=== PATIENT | male | born 1950 | race Caucasian/White ===

== ENCOUNTER → 2024-04-21 07:27 | Outpatient (REF) | payer OTHER, SELFPAY | LOC: EMG 07:27 | PROVIDERS: ATTENDING PHYSICIAN Psychiatry & Neurology Sleep Medicine; FAMILY PHYSICIAN Nurse Practitioner | DX: G62.9 Polyneuropathy, unspecified (principal); R20.0 Anesthesia of skin | CPT/HCPCS: 95886; 95912 ==

== ENCOUNTER 2025-04-15 14:35 | Emergency (ER) | payer MEDICARE, OTHER, SELFPAY ==
[2025-04-15 14:37] VITALS: BP 141/94
[2025-04-15 14:49] VITALS: BP 138/100
[2025-04-15 15:00] VITALS: BP 142/75
--- NOTE | 2025-04-15 15:11 | ED.CVA ---
History of Present Illness
General
Chief Complaint: CVA/TIA Symptoms
Source: patient and family
Time Seen by Provider: 04/15/25 14:50
Onset of Stroke Symptoms
Onset of symptoms known: Yes
Date of onset of symptoms: 04/15/25
Time of onset of symptoms: 13:45
History of Present Illness
History of Present Illness:
74-year-old male with past medical history of CHF, hypertension and hyperlipidemia presenting to the emergency department with son who reports that around 1:45 PM the patient started to notice 'an odd sensation' on the left side of his face, son
came to the house and noticed a left-sided facial droop with mild dysarthria prompting him to take the patient to the hospital. Since arriving to the hospital the dysarthria has fully resolved but the patient still has the mild facial droop.
Patient states that for the last 6 to 8 months he has been dealing with daily chronic of unspecified etiology usually a 4 out of 10 but tolerable, today seemed a little bit worse about a 5 out of 10 which she noticed around 9 AM but this headache
resolved after going on a 7 mile walk. Patient also notes that he has been dealing with chronic throat discomfort since November which she is currently scheduled to see a trade union official for later this week. Patient denies any fevers or infectious
symptoms, visual disturbances, focal weakness or numbness, chest pain or shortness of breath, nausea, vomiting or any other concerns. Denies any history of similar. Family history was negative for any acute neurological complications. Social
history was also noncontributory.
Past History
Past History
ED Past Medical History: CHF, HTN and Hypercholesterolemia
ED Past Surgical History: Orthopedic
Social History
Tobacco: Non-smoker
Alcohol: None
Drug: None
Personal:
Living: alone
Review of Systems
Review of Systems
All Other Systems: ROS reviewed and negative except as documented in HPI and ROS
Phy Exam
Physical Exam
Physical Exam:
GENERAL: Alert , in no apparent distress
HEAD: Normocephalic atraumatic
EYE: pupils equal and reactive, 3 mm, PERRL, EOMI
NECK: Supple
ENT: o/p clr, mmm.
CARDIAC: Regular rate and rhythm, no murmur .
LUNGS: Clear breath sounds bilaterally, no acute respiratory distress, no wheezes/rales/rhonchi
ABDOMEN: Soft, without focal tenderness, no r/g, no cvat
NEUROLOGICAL: Alert and oriented x 3, mild facial droop to left noted. no dysarthria/aphasia, no drift, no ataxia
SKIN: Warm and dry, skin intact.
MUSCULOSKELETAL: No edema, well perfused.
PSYCH: Normal and appropriate interaction.
Scores
NIH Stroke Score
Level of Consciousness: 0 - Alert
LOC Questions: 0-Answers both correctly
LOC Commands: 0-Performs both correctly
Best Horizontal Gaze: 0-Normal
Visual Germain: 0=Normal, no visual loss
Facial Palsy: 1=Minor paralysis
Motor - Right Arm: 0=No drift 10 seconds
Motor - Left Arm: 0=No drift 10 seconds
Motor - Right Le-No drift 5 seconds
Motor - Left Le-No drift 5 seconds
Limb Ataxia: 0-Absent
Sensation: 0-Normal
Best Language: 0-No aphasia
Dysarthria: 0-Normal
Extinction and Inattention: 0-No abnormality
NIH Total Score:: 1
Thrombolytic Contraindication
Inclusion and Exclusion criteria reviewed: Yes
Reasons for NON-Tx with Thrombolytics ABSOLUTE Exclusions: Greater than 4.5 hrs from onset of sxs
Heart Failure Risk
Heart Failure Risk Score: Not Applicable
Heart Score for Chest Pain Patients
STEMI patient?: Not applicable
Withdrawal Assessment of Alcohol
Withdrawal Assessment Completed?: Not applicable
Course
Orders/Labs/Results
Orders:
Orders
04/15/25 15:00
CMP [Comprehensive Metabolic Panel] Urgent
Complete Blood Count/With Diff Urgent
04/15/25 15:02
CT HEAD STROKE ALERT W/o Cont Urgent
Comment:
Reason For Exam: left sided facial droop
CT HEAD/NECK ANG STROKE ALERT Urgent
Comment:
Reason For Exam: left sided facial droop
04/15/25 15:04
Electrocardiogram (*1) Urgent
Reason for Study: TIA/Stroke
EKG- Treatment ONCE
04/15/25 15:05
Type+Screen Urgent
PTT Urgent
Prothrombin Time Urgent
04/15/25 15:06
Troponin I Urgent
04/15/25 15:19
Lyme Progressive Urgent
04/15/25 15:54
ABO2 Urgent
BBK Wristband Number:
Associate notified that ABO2 has been ordered: [id number]
Date: 04/15/25
Time: 15:54
Seismic Engineer ID: [id number]
04/15/25 16:10
Aspirin 325 mg PO NOW STA
Atorvastatin [Lipitor] 40 mg PO NOW STA
Clopidogrel Bisulfate [Plavix] 300 mg PO NOW STA
Abnormal Lab Results
04/15/25
15:00
RBC 4.25 L 10^6/uL
(4.70-6.10)
MCH 32.2 H pg
(27.0-31.0)
Absolute Lymphs (auto) 1.0 L 10^3/uL
(1.2-3.4)
Absolute Monos (auto) 0.7 H 10^3/uL
(0.1-0.6)
Lymphocytes % 16.5 L %
(20.5-51.1)
Monocytes % 11.6 H %
(1.7-9.3)
Chloride 111 H mmol/L
(98-107)
Creatinine 0.6 L mg/dL
(0.7-1.3)
Glucose 143 H mg/dl
(70-99)
04/15/25 15:00
04/15/25 15:00
Vital Signs
Initial and Last Documented VS:
Initial Vital Signs
Temp Pulse Resp BP Pulse Ox
98.7 F 96 15 141/94 98
04/15/25 14:37 04/15/25 14:37 04/15/25 14:37 04/15/25 14:37 04/15/25 14:37
Last Documented Vital Signs
Temp Pulse Resp BP Pulse Ox
98.7 F 73 21 156/83 98
04/15/25 14:37 04/15/25 16:15 04/15/25 16:15 04/15/25 16:00 04/15/25 16:15
MDM/Problems Addressed
Differential Diagnosis Includes:
- TIA
- CVA
- Aneurysm
- Hypertensive urgency/emergency
- Ornelas's palsy
- Atypical migraine/complex migraine
- Intracranial bleeding
- Malignancy
MDM/Problems Addressed:
74-year-old male presenting to the ER for evaluation of a left-sided facial droop that reportedly began around 1:45 PM this was accompanied with mild dysarthria which is now reportedly resolved. NIH score of 1. Given his increased headache today
at 9 AM, this could be considered time of onset of symptoms even though the symptoms initially dissipated, new onset of symptoms around 1:45 PM. Given the patient's low NIH score and rapidly improving symptoms patient will not be a TNK candidate.
We still did call a stroke alert, neurology to the bedside. Disposition pending.
*Radiology
Radiology exam reviewed: radiology read reviewed
*Pulse Oximetry
SaO2: 98
Oxygen Mode of Delivery: Room air
Patient hypoxic: no
*Wrapper Selector Interpretation
Rate: normal
Heart Rate: 80
Rhythm: sinus
*Critical Care Note
Total Time (30-74mins, 75-104mins- exclusive of procedures): 30
comment:
Critical care statement: A total of 30 minutes of critical care time was provided for this patient. This includes management of unstable vital signs, evaluation of the patient at bedside, reviewing the patient's pertinent medical records, discussion
with consultants, review of old EKGs and review of pertinent medical records. This time with separate from time utilized to perform the aforementioned documented procedures
Patient Management
Discussion with other providers: Chainman
Escalation/DeEscalation of care consider admission/obs:
Patient seen by neurologist who does suspect patient likely had TIA versus CVA. Patient does not wish to be admitted. Will treat here with a loading dose of aspirin and Plavix. Will send patient home with 3-week supply of dual action platelet
therapy as well as a month supply of Lipitor. Patient has a follow-up already arranged with his primary care provider for week. I also notified the cardiology service desk lead so patient can be scheduled for a Holter monitor and echocardiogram and was
able to schedule him an appointment on May 15 at 9:[address] Belcher. Patient and son are happy with this plan and are agreeable to return precautions.
ED Attending Note
-
Portions of this chart may have been created with voice recognition software.� Occasional wrong word or��sound alike� substitutions may have occurred due to the inherent limitations of voice recognition software.
Discharge Plan
Departure
Patient Disposition: Home (Routine Discharge)
Date of Disposition: 04/15/25
Time of Disposition: 16:07
Patient with high blood pressure during this ER visit?: Yes
Discharge Problem:
Brain TIA
Instructions: Transient Ischemic Attack (DC)
Prescriptions:
New
aspirin 81 mg tablet
81 mg PO DAILY Qty: 30 0RF
atorvastatin [Lipitor] 40 mg tablet
40 mg PO DAILY Qty: 30 0RF
clopidogrel [Plavix] 75 mg tablet
75 mg PO DAILY 21 Days Qty: 21 0RF
No Action
fluticasone propion-salmeterol [Advair Diskus] 250-50 mcg/dose Blister With Device
1 inh INHALATION BID
atorvastatin 20 mg Tablet
20 mg PO QPM
montelukast 10 mg Tablet
10 mg PO DAILY
Spiriva Respimat 1.25 mcg/actuation Mist
2 puff INHALATION DAILY
Referrals:
Vic Beyer MD [Active, Cardiology]
Referral Note: Please call for appointment
UNKNOWN - PT DOES,NOT KNOW [Unknown Provider]
Interventions
Interventions:
*Risk Screen - Suicide Last Done: 04/15/25 14:37
*General Assessment Last Done: 04/15/25 14:37
*Neglect/Abuse Screening Last Done: 04/15/25 14:37
*ED- Fall Risk Assessment Last Done: 04/15/25 14:48
*ED COVID-19 Vaccine History Last Done: 04/15/25 14:48
*Nursing Disposition Last Done: 04/15/25 16:38
ED- Pulmonary Assessment Last Done: 04/15/25 14:48
ED- Neurological Assessment Last Done: 04/15/25 14:48
ED- Cardiac Assessment Last Done: 04/15/25 14:48
ED Swallowing Screen Last Done: 04/15/25 16:00
Discharge Date and Time
Discharge Date/Time: 04/15/25 16:39
Print Language: SLOVAK
[2025-04-15 15:12] LABS: Hematocrit 39.7 % (39.0-52.0); Hemoglobin 13.7 g/dL (13.0-18.0); Mean Corp Hgb Conc. 34.5 g/dL (33.0-37.0); Mean Corpuscular Volume 93.4 fL (80.0-94.0); Nucleated Red Blood Cells % 0 % (-); Platelet Count 235 10^3/uL (130-400); Red Cell Dist. Width 13.8 % (11.5-14.5)
[2025-04-15 15:26] LABS: ALT (SGPT) 37 U/L (0-50); AST (SGOT) 40 U/L (17-59); Albumin 4.0 g/dl (3.5-5.0); Alkaline Phosphatase 75 U/L (38-126); Blood Urea Nitrogen 19 mg/dl (9-20); Calcium 9.4 mg/dl (8.4-10.2); Carbon Dioxide 22 mmol/L (22-30); Chloride 111 mmol/L (98-107); Glucose 143 mg/dl (70-99); Potassium 4.0 mmol/L (3.5-5.1); Sodium 138 mmol/L (135-145); Total Protein 6.4 g/dl (6.3-8.2); eGFR > 60.00
[2025-04-15 15:29] LABS: APTT 28.7 Sec (23.4-35.0); INR 1.01; PT 13.8 Sec (11.4-14.6)
[2025-04-15 15:37] LABS: Troponin I < 0.012 ng/ml
[2025-04-15 16:00] VITALS: BP 156/83
[2025-04-15] MEDS: LIPITOR 40 MG PO (16:26)
[2025-04-15] MEDS: ASPIRIN 325 MG PO (16:26)
[2025-04-15] MEDS: PLAVIX 300 MG PO (16:26)
--- NOTE | 2025-04-15 21:20 | CON.NEURO ---
Neuro Assessment/Plan
Assessment
CVA, TIA vs lacunar stroke, likely due to small vessel disease
CT head was normal
CTA head/neck imgs and report rev'd carotid plaque w/o significant stenosis
can't get MRI, shrapnel
discussed TNK and recommended not giving it given the minor nature of symptoms
he would very much like to go home with ASA 81, 21 days of plavix, increase lipitor 40
outpatient cardiology for afib screening, >24 hrs is standard of care though in cases where other etiology is suspected the yield on a 3 year loop recorder is ~20%
this was discussed with patient and son
Consultation
Order
Date of Consultation: 04/15/25
Requesting Provider: Volodymyr Mota
Reason for Consult: stroke alert
Subjective/Objective
Subjective Data
Date of Service: April 15, 2025
from ED notes:
74-year-old male with past medical history of CHF, hypertension and hyperlipidemia presenting to the emergency department with son who reports that around 1:45 PM the patient started to notice 'an odd sensation' on the left side of his face, son
came to the house and noticed a left-sided facial droop with mild dysarthria prompting him to take the patient to the hospital. Since arriving to the hospital the dysarthria has fully resolved but the patient still has the mild facial droop.
Patient states that for the last 6 to 8 months he has been dealing with daily chronic of unspecified etiology usually a 4 out of 10 but tolerable, today seemed a little bit worse about a 5 out of 10 which she noticed around 9 AM but this headache
resolved after going on a 7 mile walk. Patient also notes that he has been dealing with chronic throat discomfort since November which she is currently scheduled to see a residential appliance repair technician for later this week. Patient denies any fevers or infectious
symptoms, visual disturbances, focal weakness or numbness, chest pain or shortness of breath, nausea, vomiting or any other concerns. Denies any history of similar. Family history was negative for any acute neurological complications. Social
history was also noncontributory.
he has shrapnel from [place] and can't get MRI
Objective Data
Vital Signs
Temp Pulse Resp BP Pulse Ox
37.1 C 73 21 156/83 98
04/15/25 14:37 04/15/25 16:15 04/15/25 16:15 04/15/25 16:00 04/15/25 16:15
Lab Results
04/15/25 15:00
04/15/25 15:00
PT 13.8 Sec (11.4-14.6) 04/15/25 15:05
INR 1.01 04/15/25 15:05
APTT 28.7 Sec (23.4-35.0) 04/15/25 15:05
Sodium 138 mmol/L (135-145) 04/15/25 15:00
Potassium 4.0 mmol/L (3.5-5.1) 04/15/25 15:00
BUN 19 mg/dl (9-20) 04/15/25 15:00
Glucose 143 mg/dl (70-99) H 04/15/25 15:00
Calcium 9.4 mg/dl (8.4-10.2) 04/15/25 15:00
Patient Allergies
No Known Allergies Allergy (Unverified 05/03/22 09:10)
CVA Assessment
Onset of Stroke Symptoms
Onset of symptoms known: Yes
Date of onset of symptoms: 04/15/25
Time of onset of symptoms: 13:45
NIH Stroke Score
Level of Consciousness: 0 - Alert
LOC Questions: 0-Answers both correctly
LOC Commands: 0-Performs both correctly
Best Horizontal Gaze: 0-Normal
Visual Germain: 0=Normal, no visual loss
Facial Palsy: 1=Minor paralysis
Motor - Right Arm: 0=No drift 10 seconds
Motor - Left Arm: 0=No drift 10 seconds
Motor - Right Le-No drift 5 seconds
Motor - Left Le-No drift 5 seconds
Limb Ataxia: 0-Absent
Sensation: 0-Normal
Best Language: 0-No aphasia
Dysarthria: 0-Normal
Extinction and Inattention: 0-No abnormality
NIH Total Score:: 1
Tenecteplase Contraindications
Reasons for NON-Tx with Thrombolytics ABSOLUTE Exclusions: Patient/family refused
Physical Exam
-
left NL flattening, otherwise nonfocal
Medications
-
Home Medications
�Medication �Instructions �Recorded
atorvastatin 20 mg tablet 20 mg PO QPM 05/03/22
fluticasone 250 mcg-salmeterol 50 1 inh inhalation BID 05/03/22
mcg/dose blistr powdr for
inhalation (Advair Diskus)
montelukast 10 mg tablet 10 mg PO DAILY 05/03/22
tiotropium bromide 1.25 2 puff inhalation DAILY 05/03/22
mcg/actuation mist for inhalation
(Spiriva Respimat)
aspirin 81 mg tablet 81 mg PO DAILY #30 tabs 04/15/25
atorvastatin 40 mg tablet (Lipitor) 40 mg PO DAILY #30 tabs 04/15/25
clopidogrel 75 mg tablet (Plavix) 75 mg PO DAILY 3 weeks #21 tabs 04/15/25
[2025-04-20 13:59] LABS: Lyme Antibody Screen, EIA Negative (Negative)
== END 2025-04-15 16:39 | disposition home or self-care (01) ==
LOC: EMR 14:35
PROVIDERS: Physician Assistant Medical; EMERGENCY PHYSICIAN Student in an Organized Health Care Education/Training Program; FAMILY PHYSICIAN Nurse Practitioner; OTHER PHYSICIAN Psychiatry & Neurology Clinical Neurophysiology
DX: G45.9 Transient cerebral ischemic attack, unspecified (principal); R51.9 Headache, unspecified; R09.89 Other specified symptoms and signs involving the circulatory and respiratory systems; I11.0 Hypertensive heart disease with heart failure; I50.9 Heart failure, unspecified; E78.00 Pure hypercholesterolemia, unspecified; Z79.899 Other long term (current) drug therapy
CPT/HCPCS: 99291; 70450; 70496; 70498; 80053; 84484; 85025; 85610; 85730; 86618; 86850; 86900; 86901; 93005; Q9967

== ENCOUNTER → 2025-05-30 09:20 | Outpatient (REF) | payer OTHER, SELFPAY | LOC: RCS 09:20 | PROVIDERS: ATTENDING PHYSICIAN Student in an Organized Health Care Education/Training Program; FAMILY PHYSICIAN Nurse Practitioner | DX: R06.00 Dyspnea, unspecified (principal); J44.9 Chronic obstructive pulmonary disease, unspecified; T17.900S Unspecified foreign body in respiratory tract, part unspecified causing asphyxiation, sequela; R06.09 Other forms of dyspnea; R06.83 Snoring; M54.16 Radiculopathy, lumbar region | CPT/HCPCS: 93225; 93226 ==

== ENCOUNTER → 2025-06-04 12:17 | Outpatient (REF) | payer OTHER, SELFPAY ==
--- NOTE | 2025-06-04 14:22 | PTCARENOTE ---
Pt here for Echo Bubble Study, IV team placed Right forearm 22 G PC, site clear,no redness, no edema. Echo Bubble study completed with aseptic technique per protocol, pt tolerated well, offers no complaints. [facility] D/C ed at 1420, site clear, no
redness, no edema. Pressure held, no bleeding, 2x2 applied and taped. Pt offers no complaints.
== END ==
LOC: RCS 12:17
PROVIDERS: ATTENDING PHYSICIAN Student in an Organized Health Care Education/Training Program; FAMILY PHYSICIAN Nurse Practitioner
DX: G45.9 Transient cerebral ischemic attack, unspecified (principal)
CPT/HCPCS: 93306

== ENCOUNTER 2025-06-12 10:30 | Day surgery (SDC) | payer OTHER, SELFPAY ==
--- NOTE | 2025-06-12 16:17 | ITS.CL.IMPLP ---
Retail Pricing Coordinator - Implant Loop
Implant Loop
Procedure Report:
Date of Procedure: June 12, 2025.
Procedure: Insertable Loop Recorder Implant.
Indication: Dramatic neurologic symptoms/TIA suspected to be of embolic source. Telemetry revealed nonsustained atrial tachycardia.
Performing physician: Jose A Cruz MD, [facility].
Implant:� [employer]; Reveal LINQII; Model# [id number]; Serial# [id number].
Technique: The patient was prepped and draped in the usual fashion. A time-out was performed.� No intravenous sedation was administered. Local anesthetic was applied to the left pre-pectoral subcutaneous tissue. Using the insertion kit an incision
was made left of the midline in the fourth intercostal space and the device was implanted subcutaneously and directed towards the nipple. Hemostasis was excellent. The skin was closed with steri-strips. The estimated blood loss was less than 1 ml.
There were no complications. No fluoroscopy. R waves measured [ ] mV and P waves were visible.
Final Programming: Detections: Afib, tachy at 160 bpm, shannon at 30 bpm, pause at 3 sec.
Conclusion: Uncomplicated insertable loop implant.
Recommendation: Routine post-insertable loop care. The device is MRI conditional without a waiting period and up to 3 Neelima.
cc: Patricia Belcher MD and RIKKI Youssef ([place] [place]).
== END 2025-06-12 13:14 | disposition home or self-care (01) ==
LOC: CATH 10:30
PROVIDERS: ATTENDING PHYSICIAN Internal Medicine Cardiovascular Disease; FAMILY PHYSICIAN Nurse Practitioner; OTHER PHYSICIAN Student in an Organized Health Care Education/Training Program
DX: Z09 Encounter for follow-up examination after completed treatment for conditions other than malignant neoplasm (principal); Z86.73 Personal history of transient ischemic attack (TIA), and cerebral infarction without residual deficits; I10 Essential (primary) hypertension
CPT/HCPCS: 33285; C1764

== ENCOUNTER → 2025-07-02 12:00 | Outpatient (REF) | payer OTHER, SELFPAY | LOC: DHSLP 12:00 | PROVIDERS: ATTENDING PHYSICIAN Internal Medicine Critical Care Medicine; FAMILY PHYSICIAN Nurse Practitioner Family | DX: G47.33 Obstructive sleep apnea (adult) (pediatric) (principal); R06.83 Snoring | CPT/HCPCS: 95800 ==